=== PATIENT | female | born 1960 | race Caucasian/White ===

== ENCOUNTER 2021-06-29 20:20 | Inpatient (IN) | payer BC, SELFPAY ==
[2021-06-29] VITALS (30 sets, daily range): BP systolic 63–117; BP diastolic 40–66; PULSE 83–100; RESP 10–41; O2SAT 92–100
--- NOTE | ~2021-06-29 | CT_ITS ---
EXAMINATION: CT abdomen pelvis w con DATE: 06/29/2021 21:49 INDICATION: Bright red emesis . Black tarry stools. Abdominal pain. TECHNIQUE: Computed tomography (CT) of the abdomen and pelvis was performed with 100 mL Omnipaque-350 intravenous contrast. Automated exposure control and iterative reconstruction technique were employe d. The dose-length product was 1662.18 mGy-cm. COMPARISON: None FINDINGS: Mild lingular atelectasis. Heart size is normal. No pericardial or pleural effusion. Nodular cirrhoti c liver. Splenomegaly measuring 15.5 cm maximal length likely related to portal venous hypertension r esulting from the cirrhosis. There are both prominent left splenorenal collaterals as well as paraeso phageal varices. There is also recanalization of the umbilical vein. Multiple small gallstones in the dependent aspect of the nondilated gallbladder. Pancreas, bilateral adrenal glands and kidneys are n ormal. There are few scattered colonic diverticula without adjacent inflammatory change to suggest di verticulitis. Small bowel and appendix are normal. Bladder is normal. 2 cm partially calcified fibroi d at the left side of the uterine fundus. Bilateral adnexa are unremarkable. No free intraperitoneal gas or fluid. No pathologically enlarged abdominal or pelvic lymphadenopathy. mild lumbar spondylosis . Indeterminate 2 cm lesion at L1 with subtle peripheral sclerosis. Mild left hip osteoarthritis with subarticular cystic change at the anterior acetabulum. IMPRESSION: 1. Cirrhosis and stigmata of secondary portal venous hypertension including splenomegaly, recanalized umbilical vein, splenorenal collaterals and esophageal varices latter which might account for the re ported history of hematemesis. 2. Cholelithiasis. 3. Mild diverticulosis. 4. Indeterminate 2 cm lesion at L1 statistically most likely to represent a hemangioma however differ ential would include mass effect disease in the proper clinical setting. Consider follow-up either [place] scan or pre and postcontrast MRI of the lumbar spine for further evaluation. 5. Partially calcified uterine fibroid. Reviewed, dictated and finalized at location A. IMPRESSION: 1. Cirrhosis and stigmata of secondary portal venous hypertension including spl enomegaly, recanalized umbilical vein, splenorenal collaterals and esophageal v arices latter which might account for the reported history of hematemesis. 2. Cholelithiasis. 3. Mild diverticulosis. 4. Indeterminate 2 cm lesion at L1 statistically most likely to represent a hem angioma however differential would include mass effect disease in the proper cl inical setting. Consider follow-up either bone scan or pre and postcontrast MRI of the lumbar spine for further evaluation. 5. Partially calcified uterine fibroid.
--- NOTE | ~2021-06-29 | XR_ITS ---
XR chest 1V DATE: 06/29/2021 23:48 INDICATION: Central line placement TECHNIQUE: Portable AP chest on 06/29/2021 at 2338 hours COMPARISON: None FINDINGS: Right internal jugular central venous catheter tip overlies the superior vena cava. No evid ence of pneumothorax. NG tube noted passing toward the stomach, distal portion not included in this examination. Heart size is within normal range. Left lower lobe infiltrate or atelectasis. No pulmonary infiltrate or consolidation, pleural effusion or pulmonary vascular congestion or pneumothorax is noted otherwise IMPRESSION: Right internal jugular central venous catheter in superior vena cava Left lower lobe infiltrate and/or atelectasis NG tube Reviewed, dictated and finalized at location A. IMPRESSION: Right internal jugular central venous catheter in superior vena cav a Left lower lobe infiltrate and/or atelectasis NG tube
--- NOTE | ~2021-06-29 | XR_ITS ---
EXAMINATION: XR abdomen NG/feed tube insert DATE: 06/29/2021 21:23 INDICATION: Nasogastric tube placement TECHNIQUE: A supine view of the abdomen and lower chest was obtained for evaluation of feeding tube placement. COMPARISON: None. FINDINGS: Nasogastric tube tip in the body of the stomach. Mild elevation of left hemidiaphragm. Mild bibasilar opacities. Heart size within normal limits for AP technique. No dilated loops of gas-filled bowel in the visualized upper abdomen. IMPRESSION: 1. Nasogastric tube in the stomach. 2. Mild bibasilar opacities which could represent atelectasis, mild pulmonary edema or pneumonia. Reviewed, dictated and finalized at location A. IMPRESSION: 1. Nasogastric tube in the stomach. 2. Mild bibasilar opacities which could represent atelectasis, mild pulmonary e ashok or pneumonia.
--- NOTE | 2021-06-29 20:50 | ED.GIBLEED ---
HPI - GI Bleed General Chief complaint: GI Bleed Stated complaint: GI BLEED Time Seen by Provider: 06/29/21 20:31 Source: patient History of Present Illness HPI Narrative: Patient presents with dark stool and vomiting blood. Reports she drinks about 4-5 rum and Cokes at night for the past several years. She has had episodes of bloody emesis has not previously been evaluated for it. Today she was found by her in the bathroom with a large amount of bloody stool and bloody emesis so EMS was called. EMS noted very large amount across the restroom and patient was somewhat drowsy and then transported to the ER for evaluation. Patient was given about 300 and asked in route she initially hypotensive and her blood pressure improved on arrival to the ER. Patient reports she feels lightheaded denies any focal areas of pain. She denies prior history of cirrhosis or liver disease that she knows of. Denies any chest pain or shortness of breath denies any fevers cough or congestion Related Data Allergies Allergy/AdvReac Type Severity Reaction Status Date / Time No Known Allergies Allergy Mild Unverified 12/22/08 13:05 Review of Systems Review of Systems: CONSTITUTIONAL: Denies fever, chills, or sweats. EYES: Denies visual changes, redness, or discharge. ENT: Denies rhinorrhea, congestion, sore throat, or otalgia. CARDIOVASCULAR: Denies chest pain, palpitations, or edema. RESPIRATORY: Denies cough or dyspnea. GASTROINTESTINAL: Hematemesis and dark stool GENITOURINARY: Denies dysuria or hematuria. SKIN: Denies rash or itching. MUSCULOSKELETAL: Denies back pain, joint pain, or myalgia. NEUROLOGIC: Denies headache, numbness, or weakness. PSYCHIATRIC: Denies anxiety or depression. All systems reviewed & are unremarkable except as noted in HPI and below PMFSH Social History Social History (Updated 06/29/21 @ 21:02 by Hammad Kaplan MD) Alcohol intake: current Living arrangements: with family Exam Narrative: GENERAL: Well-appearing, well-nourished, and in no acute distress. HEAD: Normocephalic, atraumatic. EYES: PERRLA and EOMI. ENT: Nares clear, no rhinorrhea or epistaxis. Mucous membranes moist. Dried blood around the oropharynx NECK: Supple. No masses. No JVD CHEST: Clear to auscultation. No respiratory distress. No wheezes rales or rhonchi HEART: Regular rate and rhythm. No murmur heard. Normal peripheral pulses. ABDOMEN: Soft, nontender, nondistended, normal active bowel sounds. Melanotic stool noted on the bed and legs of the patient EXTREMITIES: Normal range of motion. No edema. SKIN: Warm, dry, no rash. NEURO: No focal deficits. Alert and oriented x3. PSYCH: Normal mood and affect. Course Reevaluation(s) Reevaluation #1: Patient is feeling improved with fluids and after central line was placed. Patient does have significant GI bleeding and will require admission. Patient is comfortable inpatient plan. Date: 06/30/21 Time: 00:21 Consultations Consultation #1: Case cussed with hospitalist team GI and ICU team patient will be admitted for further management. Date: 06/30/21 Time: 00:21 Vital Signs Vital signs: Vital Signs Pulse Rate 100 06/29/21 20:20 Respiratory Rate 22 H 06/29/21 20:20 Blood Pressure 102/54 L 06/29/21 20:20 Pulse Oximetry 98 06/29/21 20:20 Pulse Rate 92 06/30/21 00:30 Respiratory Rate 22 H 06/30/21 00:30 Blood Pressure 108/48 L 06/30/21 00:30 Pulse Oximetry 100 06/30/21 00:30 Procedures Central Line Placement Right IJ: Central Line Date: 06/29/21 Central Line Time: 23:22 Discussed w/ the patient/family/POA,the placement of a central venous catheter, including its clinical necessity/indication & associated potential risks, benifits and alternatives.: Yes The patient/family/POA understand(s) and acknowledge(s) the need to proceed with central venous catheter insertion as an important element of the patient's clinical management.: Yes
[2021-06-29 21:00] LABS: Basophils Absolute Auto 0.1 K/mm3 (0.0-0.1); Basophils Percent Auto 0.5 % (0.2-1.2); Eosinophils Absolute Auto 0.2 K/mm3 (0-0.3); Eosinophils Percent Auto 1.8 % (0-4.4); Hematocrit 24.9 % (37.0-47.0); Hemoglobin 7.7 g/dL (12.0-15.0); Immature Granulocyte Percent A 0.8 % (0-0.5); Lymphocytes Absolute Auto 3.22 K/mm3 (0.9-3.2); Lymphocytes Percent Auto 25.6 % (18.3-44.2); Mean Corpuscular HGB Conc 30.9 g/dl (32-36); Mean Corpuscular Hemoglobin 32.9 pg (26-34); Mean Corpuscular Volume 106.4 fl (80-100); Mean Platelet Volume 10.3 fl (7.4-10.4); Monocytes Absolute Auto 0.9 K/mm3 (0.1-0.6); Monocytes Percent Auto 7.1 % (2.6-8.5); Neutrophils Absolute Auto 8.1 K/mm3 (1.3-6.7); Neutrophils Percent Auto 64.2 % (45.5-73.1); Platelet Count Result 114 k/mm3 (150-375); Red Blood Count 2.34 M/mm3 (4.2-5.4); Red Cell Distribution Width 16.1 % (11.5-14.5); White Blood Count 12.6 K/mm3 (4.5-10.0)
[2021-06-29 21:10] LABS: INR 1.6; Prothrombin Time 18.4 Seconds (11.1-14.7)
[2021-06-29] MEDS: OCTREOTIDE ACETATE 50 MCG/ML VIAL IV PUSH (21:10)
[2021-06-29 21:11] LABS: Partial Thromboplastin Time 28.7 SECONDS (22.3-36.8)
[2021-06-29 21:14] LABS: Ammonia 49 umol/L (9-30)
[2021-06-29 21:15] LABS: Alanine Aminotransferase 32 U/L (4-35); Albumin Level 2.8 g/dL (3.5-5.1); Alkaline Phosphatase 52 U/L (38-126); Anion Gap 8 mmol/L (8-16); Aspartate Amino Transferase 34 U/L (14-36); Bilirubin,Total 1.6 mg/dL (0.2-1.3); Blood Urea Nitrogen 24 mg/dL (7-17); Calcium 8.6 mg/dL (8.4-10.2); Carbon Dioxide 17 mmol/L (22-30); Chloride 112 mmol/L (98-107); Estimated CRCL calculation 98 ml/min; Estimated Glomerular Filt Rate > 60; Glucose 238 mg/dL (65-110); Lipase 194 U/L (23-300); Magnesium 1.9 mg/dL (1.6-2.3); Potassium 3.9 mmol/L (3.4-5.0); Sodium 137 mmol/L (137-145)
[2021-06-29] MEDS: PANTOPRAZOLE SODIUM IV 40 MG VIAL 80 MG IV PUSH (21:50)
[2021-06-29] MEDS: ONDANSETRON INJ 4 MG/2 ML VIAL IV PUSH ×2 (21:50→23:11)
[2021-06-29] MEDS: SODIUM CHLORIDE 0.9% IV 500 ML 999 ML IV CONT ×2 (22:11→23:11)
--- NOTE | 2021-06-29 23:09 | PC.NURSE ---
16 triple lumen inserted to right IJ by Dr Kaplan
--- NOTE | 2021-06-29 23:10 | PC.NURSE ---
patient had large emesis while sitting up, vomiting several large blood clots. states that she feels bad . Dr Kaplan aware. BP low. NG suction turned off and patient HOB lowered. Dr. Kaplan in to start central line. creative writer assisted. patient tolerated well. SBP during procedure up to 117. at bedside after procedure. no bloody stools noted since arrival
[2021-06-30] VITALS (31 sets, daily range): BP systolic 81–121; BP diastolic 41–95; PULSE 74–100; RESP 12–26; TEMP 36.1–37.2; O2SAT 91–100; BMI 54.1
--- NOTE | 2021-06-30 00:13 | PM.IMHP ---
H&P: HPI History of Present Illness Date/Time: 06/30/21 00:13 Chief Complaint: Hematemesis. Narrative: This is a 60-year-old female with past medical history significant for alcohol dependence, tobacco dependence, half to 1 pack of cigarettes daily morbid obesity, chronic back pain, patient presents to the emergency room after she had an episode of large hematemesis according to patient she also had an episode of melena back in April which clear up on its on again this episode repeated just recently and today she had a large hematemesis. Patient had been feeling nauseous and dry heaving earlier in the day and not overall feeling well for the last couple of days or so with poor appetite. Patient denies any changes in stool character, no weight loss, no abdominal pain, no fevers, no rigors, no chills, no cough, no sputum production, no leg swelling, no PND, no orthopnea. Preliminary workup was significant for hemoglobin of 7, MCV 106, a CT of abdomen and pelvis was consistent with hepatic cirrhosis, portal hypertension, and esophageal varices. Patient is being admitted for further evaluation, management and treatment. Review of Systems Review of Systems: Hematemesis Constitutional: Constitutional: Denies chills, Denies fatigue, Denies fever(s), Denies malaise, Denies night sweats, Reports poor appetite and Denies weakness Eyes: Eyes: Denies change in vision ENT: Denies dysphagia, Denies nasal congestion, Denies nasal discharge, Denies nasal obstruction and Denies odynophagia Cardiovascular: Cardiovascular: Denies chest pain, Denies pedal edema, Denies irregular heart rhythm, Denies claudication, Denies leg edema, Denies lightheadedness, Denies radiating jaw, neck or arm pain, Denies palpitations, Denies dyspnea on exertion and Denies orthopnea Respiratory: Respiratory: Denies cough and Denies excessive phlegm production Gastrointestinal: Gastrointestinal: Denies abdominal pain, Reports melena, Denies dyspepsia, Denies heartburn, Reports nausea and Reports hematemesis Genitourinary: Genitourinary: Denies dysuria Musculoskeletal: Musculoskeletal: Reports back pain Integumentary/Breasts: Skin/Breast: Denies rash Neurologic: Denies focal weakness and Denies Sensory deficit (Neuro) Psychiatric: Psychiatric: Reports no additional psychiatric complaints and Reports as per HPI Endocrine: Endocrine: Denies cold intolerance, Denies heat intolerance, Denies polyphagia, Denies polydipsia and Denies palpitations Hematologic/Lymphatic: Hematologic/Lymphatic: Reports no additional hematologic/lymphatic complaints and Reports as per HPI Allergic/Immunologic: Allergic/Immunologic: Reports no additional allergic/immunologic complaints and Reports as per HPI [facility] Family History Family History (Updated 06/30/21 @ 02:36 by Rubina Martinez RN) Father Diabetes mellitus Social History Social History (Updated 06/29/21 @ 21:02 by Hammad Kaplan MD) Smoking packs per day: 0.75 Smoking cigarettes per day: 15.0 Years smoked: 25 Smoking pack-years: 18.75 Smoking status: Current every day smoker Tobacco type: cigarettes Alcohol intake: current Drinks per week: 28 Substance use: never Living arrangements: with family Spiritual care concerns: No Meds Home Medications and Allergies Home Medications Medication Instructions Recorded Confirmed Type aspirin 81 mg PO DAILY 06/30/21 06/30/21 History Allergies Allergy/AdvReac Type Severity Reaction Status Date / Time No Known Allergies Allergy Mild Unverified 12/22/08 13:05 Vital Signs Vital Signs - 24 hr 06/29/21 20:20 06/29/21 20:54 06/29/21 21:00 Pulse Rate 100 93 94 Respiratory Rate 22 H 28 H 41 H Blood Pressure 102/54 L Pulse Oximetry 98 94 99 06/29/21 21:02 06/29/21 21:15 06/29/21 21:16 Pulse Rate 93 98 97 Respiratory Rate 20 23 H 30 H Blood Pressure 93/58 L 96/66 L Pulse Oximetry 100 06/29/21 21:44 06/29/21 21:45
--- NOTE | 2021-06-30 00:31 | PC.NURSE ---
Pt cleaned with soap and water. Dried blood noted on hands, legs, face. Pt tolerated well. Pt changed gowns as well as shorts. PT provided a fresh ice pack and swab to wet blood out of mouth. Pt states she is feeling much better. Pt aware of plan to get blood as well as be admitted to ICU.
--- NOTE | 2021-06-30 01:11 | PC.NURSE ---
pt using bed machuca at this time.
--- NOTE | 2021-06-30 01:36 | PC.NURSE ---
RN called blood bank to ask about blood on patient states they will check on it. Pt signed consent form for blood at this time. will fax into chart.
--- NOTE | 2021-06-30 02:00 | ADMGEN ---
This patient, Dorina Beaver, was admitted to Intensive Care Unit-8. Patient/family oriented to hospital policies and general routines including ID bracelet, bed and alarms, visiting hours, pain management, procedures, bathroom and other care routines, personal items, smoking policy, room service/diet, and visiting hours. Information on how to activate the Rapid Response Team has been discussed. Patient/Family are encouraged to report perceived risks to care and to ask questions if they do not understand what they are told or what they should do.
[2021-06-30] MEDS: ONDANSETRON INJ 4 MG/2 ML VIAL IV PUSH (02:12)
[2021-06-30] MEDS: SODIUM CHLORIDE 0.9% IV 1,000 ML 125 ML IV CONT (02:55)
[2021-06-30] MEDS: CENTRAL LINE FLUSH 10 ML IV PUSH ×3 (06:09→20:23)
[2021-06-30 06:18] LABS: Add Urine Microscopic? YES; Appearance Urine Cloudy (Clear); Bacteria Urine Trace /hpf; Bilirubin Urine Negative (Negative); Blood Urine Negative (Negative); Color Urine Yellow (Yellow); Glucose Urine UA 1+ mg/dL (Negative); Ketones Urine Negative (Negative); Leukocyte Esterase Ur Negative LEU/UL (Negative); Mucus Urine Rare /lpf; Nitrate Urine Negative (Negative); Protein Urine 2+ mg/dL (Negative); Squamous Epithelial Cell Urine Occasional /hpf (Few); Urobilinogen Urine Negative mg/dL (<2.0)
[2021-06-30 06:55] LABS: Specific Grav Ur 1.056 (1.001-1.035)
[2021-06-30 08:46] LABS: Hematocrit 24.3 % (37.0-47.0); Hemoglobin 7.9 g/dL (12.0-15.0); Immature Platelet Fraction Pct 1.8 % (0.9-11.2); Mean Corpuscular HGB Conc 32.5 g/dl (32-36); Mean Corpuscular Hemoglobin 33.1 pg (26-34); Mean Corpuscular Volume 101.7 fl (80-100); Mean Platelet Volume 10.1 fl (7.4-10.4); Platelet Count Result 85 k/mm3 (150-375); Red Blood Count 2.39 M/mm3 (4.2-5.4); Red Cell Distribution Width 17.2 % (11.5-14.5); White Blood Count 9.2 K/mm3 (4.5-10.0)
[2021-06-30 08:48] LABS: Ammonia 96 umol/L (9-30)
[2021-06-30 08:50] LABS: Alanine Aminotransferase 33 U/L (4-35); Albumin Level 2.7 g/dL (3.5-5.1); Alkaline Phosphatase 50 U/L (38-126); Anion Gap 4 mmol/L (8-16); Aspartate Amino Transferase 42 U/L (14-36); Bilirubin,Total 1.6 mg/dL (0.2-1.3); Blood Urea Nitrogen 30 mg/dL (7-17); Calcium 8.2 mg/dL (8.4-10.2); Carbon Dioxide 20 mmol/L (22-30); Chloride 114 mmol/L (98-107); Estimated CRCL calculation 88 ml/min; Estimated Glomerular Filt Rate > 60; Glucose 161 mg/dL (65-110); Magnesium 1.8 mg/dL (1.6-2.3); Potassium 4.4 mmol/L (3.4-5.0); Sodium 138 mmol/L (137-145)
--- NOTE | 2021-06-30 09:41 | WPDCNINT ---
Assessment and Plan Assessment and plan (1) Upper GI bleeding: Code(s): K92.2 - Gastrointestinal hemorrhage, unspecified Status: Acute Assessment and Plan: Upper GI be likely secondary to esophageal varices or peptic ulcer disease Patient has been transfused 2 units of PRBC most recent hemoglobin is 7.9 Continue serial hemoglobin checks transfuse as needed to keep hemoglobin above 7 Protonix and octreotide infusion GI has been consulted NPO and NG tube in place P.r.n. Zofran for nausea Will give 1 dose of Reglan IV fluids -change normal saline to LR due to hyperchloremia Since patient has been on aspirin I will give her 2 units of platelets in light of active GI bleed Reviewed coags and will be vitamin K Continue IV Rocephin for SBP prophylaxis (2) Acute anemia: Code(s): D64.9 - Anemia, unspecified Status: Acute Assessment and Plan: See above (3) Hepatic cirrhosis: Code(s): K74.60 - Unspecified cirrhosis of liver Status: Acute Assessment and Plan: CT abdomen showed 1. Cirrhosis and stigmata of secondary portal venous hypertension including splenomegaly, recanalized umbilical vein, splenorenal collaterals and esophageal varices latter which might account for the reported history of hematemesis. 2. Cholelithiasis. 3. Mild diverticulosis. 4. Indeterminate 2 cm lesion at L1 statistically most likely to represent a hemangioma however differential would include mass effect disease in the proper clinical setting. Consider follow-up either bone scan or pre and postcontrast MRI of the lumbar spine for further evaluation. 5. Partially calcified uterine fibroid. 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 and chronic alcohol intake Check hepatitis panel With normal AST and ALT patient does not appear to be in hepatitis Monitor liver enzymes (4) Alcohol abuse: Code(s): F10.10 - Alcohol abuse, uncomplicated Status: Acute Assessment and Plan: Start thiamine and folic acid Patient was counseled to quit alcohol (5) Tobacco abuse: Code(s): Z72.0 - Tobacco use Status: Acute Assessment and Plan: Patient was counseled to quit smoke (6) Increased ammonia level: Code(s): R79.89 - Other specified abnormal findings of blood chemistry Status: Acute Assessment and Plan: Patient does not show any signs of hepatic encephalopathy at this time but does have elevated ammonia level from her liver disease Start lactulose once p.o. intake is resumed (7) Thrombocytopenia: Code(s): D69.6 - Thrombocytopenia, unspecified Status: Acute Assessment and Plan: Secondary to alcohol abuse Patient is getting platelet transfusion due to her use of aspirin and upper GI bleed Additional Plan DVT prophylaxis -SCDs Stress ulcer prophylaxis -PPI Nutrition -NPO Code Status -patient requests to be full code Total Critical Care Time - 32 minutes Due to a high probability of clinically significant, life threatening deterioration, the patient required my highest level of preparedness to intervene emergently and I personally spent this critical care time directly and personally managing the patient. This critical care time included obtaining a history; examining the patient; pulse oximetry; ordering and review of studies; arranging urgent treatment with development of a management plan; evaluation of patient's response to treatment; frequent reassessment; and discussions with other providers. It was exclusive of separately billable procedures and treating other patients and teaching time. Please see Assessment and Plan section and the rest of the note for further information on patient assessment and treatment [facility] Consult Note Consult date: 06/30/21 HPI: Dorina Beaver is a 60 year old female with history of alcohol abuse and smoking presented yesterday to ER with chief complaint of vomiting blood. Patient smokes3/4 pac
[2021-06-30] MEDS: LACTATED RINGERS 1,000 ML 100 ML IV CONT ×2 (10:26→20:22)
[2021-06-30] MEDS: THIAMINE HCL 200 MG/2 ML VIAL 100 MG IV PUSH (10:28)
[2021-06-30 10:34] LABS: Hemoglobin A1C 5.3 % (<5.7)
--- NOTE | 2021-06-30 11:08 | WPDGICN ---
Assessment and Plan Assessment and plan (1) Hematemesis: Qualifiers: Nausea presence: with nausea Qualified Code(s): K92.0 - Hematemesis Code(s): K92.0 - Hematemesis Status: Acute Assessment and Plan: will investigate with EGD. Differential includes varices since she has new diagnosis of cirrhosis, ulcer, esophagitis, etc continue with iv protonix, octreotide and iv antibiotic for prophylaxis- not evidence of ascites s/p blood transfusion continue to monitor in icu (2) Melena: Code(s): K92.1 - Melena Status: Acute Assessment and Plan: with ugib never had egd (3) Upper GI bleeding: Code(s): K92.2 - Gastrointestinal hemorrhage, unspecified Status: Acute (4) Acute blood loss anemia: Code(s): D62 - Acute posthemorrhagic anemia Status: Acute Assessment and Plan: s/p blood transfusion (5) Thrombocytopenia: Code(s): D69.6 - Thrombocytopenia, unspecified Status: Acute Assessment and Plan: probably from cirrhosis, will get platelet transfusion and plan is to do egd tomorrow- if more sang bleeding then we can do it later today (6) Cirrhosis, alcoholic: Code(s): K70.30 - Alcoholic cirrhosis of liver without ascites Status: Acute Assessment and Plan: new diagnosis thiamine, support care she needs to stop drinking will complete work up to rule out other chronic liver conditions then will need follow-up either in our office or get established with pmp project manager (7) Morbid obesity: Code(s): E66.01 - Morbid (severe) obesity due to excess calories Status: Acute (8) Portal hypertension: Code(s): K76.6 - Portal hypertension Status: Acute Assessment and Plan: from cirrhosis egd tomorrow on octreotide gtt GI Consult Note Consult date/time: 06/30/21 11:08 Reason for consult: hematemesis, melena, new diagnosis cirrhosis HPI: Dorina Beaver is a 60 year old female with history of alcohol abuse drinking 4-5 coke with rum daily for over 20 years, smoker who came here with new onset of hematemesis. Yesterday she was nauseous and had episode of emesis with clots, then another one this time with sang bright red blood, also noted dark tarry stool and was feeling dizzy. Hb 7.7, platelets 85, inr 1.6, bun 30, normal creatinine, bili 1.6. CT scan a/p reviewed and showed cirrhosis and stigmata of secondary portal venous hypertension including splenomegaly, recanalized umbilical vein, splenorenal collaterals and esophageal varices, cholelithiasis, mild diverticulosis, indeterminate 2 cm lesion at L1 statistically most likely to represent a hemangioma however differential would include mass effect disease in the proper clinical setting. She was admitted to ICU, placed NGT that showed old blood. She is feeling better and hemodynamically stable. Received blood transfusion and will get platelets. Never had egd or colonoscopy. She has not seen a doctor in a while, only using baby aspirin and denies previous history of liver disease. Review of Systems Constitutional: Constitutional: Denies chills Eyes: Eyes: Denies blurry vision ENT: Reports Normal hearing present Cardiovascular: Cardiovascular: Denies chest pain Respiratory: Respiratory: Denies dyspnea Gastrointestinal: Gastrointestinal: Reports melena, Reports nausea, Reports vomiting and Reports hematemesis Genitourinary: Genitourinary: Denies hematuria Musculoskeletal: Musculoskeletal: Denies neck pain Integumentary/Breasts: Skin/Breast: Denies dry skin Neurologic: Denies headache(s) Psychiatric: Psychiatric: Reports anxiety [facility] Past Medical History Medical History (Updated 06/30/21 @ 11:16 by Sam Escobedo MD) Acute blood loss anemia Cirrhosis, alcoholic Hemorrhoids Family History Family History Father Diabetes mellitus Social History Social History
[2021-06-30 11:09] LABS: Hepatitis B Surface Antigen Negative (Negative)
[2021-06-30 11:14] LABS: HAV RESULT Negative (Negative); Hepatitis B Core IgM Result Negative (Negative)
[2021-06-30 11:26] LABS: Hepatitis C Virus Antibody Negative (Negative)
[2021-06-30] MEDS: FOLIC ACID 1 MG/0.2 ML INJ IV PUSH (12:02)
[2021-06-30] MEDS: PHYTONADIONE INJ 10 MG/ML AMP SUB-Q (12:02)
[2021-06-30 12:17] LABS: Glucose Point of Care 167 mg/dl (65-105)
[2021-06-30 12:28] LABS: Hematocrit 24.6 % (37.0-47.0); Hemoglobin 7.8 g/dL (12.0-15.0)
[2021-06-30] MEDS: METOCLOPRAMIDE HCL INJ 10 MG/2 ML VIAL IV PUSH (13:18)
[2021-06-30] MEDS: diphenhydrAMINE HCl INJ 50 MG/ML VIAL 25 MG IV PUSH (13:18)
[2021-06-30] MEDS: methylPREDNISolone SOD SUCC 125 MG VIAL IV PUSH (13:19)
--- NOTE | 2021-06-30 15:23 | PM.IMPN ---
Progress Note: A&P Assessment and Plan (1) GI bleed: Code(s): K92.2 - Gastrointestinal hemorrhage, unspecified Status: Acute Assessment and Plan: Patient with significant risk factors for a esophageal variceal bleeding evidenced on CT of abdomen and pelvis Currently on octreotide plus PPI NPO GI consult 06/30/2021 interval history: 60-year-old female with history of alcohol abuse patient had been drinking heavily and presented emergency department with large hematoma emesis as well as melena, patient BUN is elevated suggesting upper GI bleed patient seen by GI scheduled for EGD tomorrow, upon arrival patient hemoglobin was 7.7 patient is receiving 2 units of pack RBC, also has iron deficiency and being treated with Venofer, patient is seen by abrasive sawyer and appreciate. her family is present in the room (2) Acute anemia: Code(s): D64.9 - Anemia, unspecified Status: Acute Assessment and Plan: Likely secondary to bleed Transfuse as needed (3) Alcohol dependence: Code(s): F10.20 - Alcohol dependence, uncomplicated Status: Acute Assessment and Plan: CIWA protocol as needed Continue to monitor (4) Hepatic cirrhosis: Code(s): K74.60 - Unspecified cirrhosis of liver Status: Acute Assessment and Plan: Likely secondary to alcohol ingestion (5) Portal hypertension: Code(s): K76.6 - Portal hypertension Status: Acute Assessment and Plan: As evidenced on CT of abdomen and pelvis Patient needs to be started on beta-blockers upon going home. (6) Esophageal varices: Code(s): I85.00 - Esophageal varices without bleeding Status: Acute Assessment and Plan: Likely secondary to portal hypertension (7) Morbid obesity: Code(s): E66.01 - Morbid (severe) obesity due to excess calories Status: Acute Assessment and Plan: Lifestyle and diet modifications (8) Tobacco dependence: Code(s): F17.200 - Nicotine dependence, unspecified, uncomplicated Status: Acute Assessment and Plan: Nicotine patch as needed. (9) Chronic back pain: Code(s): M54.9 - Dorsalgia, unspecified; G89.29 - Other chronic pain Status: Acute Assessment and Plan: Pain management as needed avoid NSAID Subjective Date/time seen: 06/30/21 15:23 HPINarrative: This is a 60-year-old female with past medical history significant for alcohol dependence, tobacco dependence, half to 1 pack of cigarettes daily morbid obesity, chronic back pain, patient presents to the emergency room after she had an episode of large hematemesis according to patient she also had an episode of melena back in April which clear up on its on again this episode repeated just recently and today she had a large hematemesis. Patient had been feeling nauseous and dry heaving earlier in the day and not overall feeling well for the last couple of days or so with poor appetite. Patient denies any changes in stool character, no weight loss, no abdominal pain, no fevers, no rigors, no chills, no cough, no sputum production, no leg swelling, no PND, no orthopnea. Preliminary workup was significant for hemoglobin of 7, MCV 106, a CT of abdomen and pelvis was consistent with hepatic cirrhosis, portal hypertension, and esophageal varices. Patient is being admitted for further evaluation, management and treatment. 06/30/2021 interval history: 60-year-old female with history of alcohol abuse patient had been drinking heavily and presented emergency department with large hematoma emesis as well as melena, patient BUN is elevated suggesting upper GI bleed patient seen by GI scheduled for EGD tomorrow, upon arrival patient hemoglobin was 7.7 patient is receiving 2 units of pack RBC, also has iron deficiency and being treated with Venofer, patient is seen by abrasive sawyer and appreciate. her family is present in the room Review of Systems Review of Systems
--- NOTE | 2021-06-30 18:01 | WPDANESEPP ---
Anes - Eval Pre Procedure Procedure: EGD Date/Time: 06/30/21 18:01 Surgeon: kylee Preop Diagnosis: gi bleeding Pre Op Diagnosis: GI BLEED Patient Data Age: 60 Gender: F Height: 1.65 m Weight: 147.1 kg Last Vital Signs Temp 36.7 C 06/30/21 16:00 Pulse 85 06/30/21 16:00 Resp 19 06/30/21 16:00 BP 120/56 L 06/30/21 16:00 Pulse Ox 96 06/30/21 16:00 Allergies Allergy/AdvReac Type Severity Reaction Status Date / Time No Known Allergies Allergy Mild Unverified 12/22/08 13:05 Home Medications Medication Instructions Recorded Confirmed Type aspirin 81 mg PO DAILY 06/30/21 06/30/21 History Laboratory Tests 06/29/21 06/29/21 06/29/21 20:53 20:53 20:53 WBC 12.6 K/mm3 H K/mm3 (4.5-10.0) RBC 2.34 M/mm3 L M/mm3 (4.2-5.4) Hgb 7.7 g/dL L g/dL (12.0-15.0) Hct 24.9 % L % (37.0-47.0) MCV 106.4 fl H fl (80-100) MCH 32.9 pg pg (26-34) MCHC 30.9 g/dl L g/dl (32-36) RDW 16.1 % H % (11.5-14.5) Plt Count 114 k/mm3 L k/mm3 (150-375) MPV 10.3 fl fl (7.4-10.4) Immature Gran % (Auto) 0.8 % H % (0-0.5) Neut % (Auto) 64.2 % % (45.5-73.1) Lymph % (Auto) 25.6 % % (18.3-44.2) [place] % (Auto) 7.1 % % (2.6-8.5) Eos % (Auto) 1.8 % % (0-4.4) Baso % (Auto) 0.5 % % (0.2-1.2) Lymph # (Auto) 3.22 K/mm3 H K/mm3 (0.9-3.2) [place] # (Auto) 0.9 K/mm3 H K/mm3 (0.1-0.6) Eos # (Auto) 0.2 K/mm3 K/mm3 (0-0.3) Baso # (Auto) 0.1 K/mm3 K/mm3 (0.0-0.1) Abs Immat Gran (auto) 0.10 K/mm3 H K/mm3 (0.00-0.031) Absolute Neuts (auto) 8.1 K/mm3 H K/mm3 (1.3-6.7) Absolute Nucleated RBC 0.0 K/mm3 K/mm3 (0.0-0.012) Nucleated RBC % 0.0 % % (0.0-0.2) % Immature Plt Fraction PT 18.4 Seconds H Seconds (11.1-14.7) INR 1.6 APTT 28.7 SECONDS SECONDS (22.3-36.8) Sodium 137 mmol/L mmol/L (137-145) Potassium 3.9 mmol/L mmol/L (3.4-5.0) Chloride 112 mmol/L H mmol/L (98-107) Carbon Dioxide 17 mmol/L L mmol/L (22-30) Anion Gap 8 mmol/L mmol/L (8-16) BUN 24 mg/dL H mg/dL (7-17) Creatinine 0.80 mg/dL mg/dL (0.7-1.0) Estim Creat Clear Calc 98 ml/min ml/min Estimated GFR > 60 (59 - ) Glucose 238 mg/dL H mg/dL (65-110) POC Capillary Glucose Hemoglobin A1c Calcium 8.6 mg/dL mg/dL (8.4-10.2) Magnesium 1.9 mg/dL mg/dL (1.6-2.3) Total Bilirubin 1.6 mg/dL H mg/dL (0.2-1.3) GGT AST 34 U/L U/L (14-36) ALT 32 U/L U/L (4-35) Alkaline Phosphatase 52 U/L U/L (38-126) Ammonia Total Protein 6.0 g/dL L g/dL (6.3-8.2) Albumin 2.8 g/dL L g/dL (3.5-5.1) Lipase 194 U/L U/L (23-300) TSH (Reflex) Urine Color Urine Appearance Urine pH Ur Specific [place] Urine Protein Urine Glucose (UA) Urine Ketones Ur Blood (Man) Urine Nitrate Urine Bilirubin Urine Urobilinogen Leukocyte Esterase Rfl Urine RBC Urine WBC Ur Squamous Epith Cells Urine Bacteria Urine Mucus Hepatitis A IgM Ab Hep Bs Antigen Hep B Core IgM Ab Hepatitis C Ab Screen Blood Type Antibody Screen Crossmatch 06/29/21 06/29/21 06/30/21 20:53 20:53 06:04 WBC RBC Hgb Hct MCV MCH MCHC RDW Plt Count MPV
[2021-06-30 18:33] LABS: Glucose Point of Care 216 mg/dl (65-105)
[2021-06-30] MEDS: INSULIN ASPART (*BKC) 100 UNITS/ML SUB-Q ×2 (18:35→23:22)
[2021-06-30 18:37] LABS: Hematocrit 25.7 % (37.0-47.0); Hemoglobin 8.4 g/dL (12.0-15.0)
[2021-06-30 23:23] LABS: Glucose Point of Care 220 mg/dl (65-105)
[2021-07-01] VITALS (17 sets, daily range): BP systolic 89–131; BP diastolic 38–64; PULSE 70–86; RESP 14–23; TEMP 36.6–37.2; O2SAT 92–100
[2021-07-01 06:17] LABS: Hematocrit 23.5 % (37.0-47.0); Hemoglobin 7.7 g/dL (12.0-15.0); Mean Corpuscular HGB Conc 32.8 g/dl (32-36); Mean Corpuscular Hemoglobin 33.2 pg (26-34); Mean Corpuscular Volume 101.3 fl (80-100); Mean Platelet Volume 9.5 fl (7.4-10.4); Platelet Count Result 88 k/mm3 (150-375); Red Blood Count 2.32 M/mm3 (4.2-5.4); Red Cell Distribution Width 18.2 % (11.5-14.5); White Blood Count 7.3 K/mm3 (4.5-10.0)
[2021-07-01] MEDS: INSULIN ASPART (*BKC) 100 UNITS/ML SUB-Q (06:24)
[2021-07-01] MEDS: LACTATED RINGERS 1,000 ML 100 ML IV CONT ×2 (06:26→16:42)
[2021-07-01] MEDS: CENTRAL LINE FLUSH 10 ML IV PUSH ×2 (06:26→14:00)
[2021-07-01 06:30] LABS: Glucose Point of Care 206 mg/dl (65-105)
[2021-07-01 06:33] LABS: Alanine Aminotransferase 41 U/L (4-35); Albumin Level 3.1 g/dL (3.5-5.1); Alkaline Phosphatase 55 U/L (38-126); Anion Gap -1 mmol/L (8-16); Aspartate Amino Transferase 57 U/L (14-36); Bilirubin,Total 1.2 mg/dL (0.2-1.3); Blood Urea Nitrogen 21 mg/dL (7-17); Calcium 8.6 mg/dL (8.4-10.2); Carbon Dioxide 21 mmol/L (22-30); Chloride 112 mmol/L (98-107); Estimated CRCL calculation 99 ml/min; Estimated Glomerular Filt Rate > 60; Glucose 201 mg/dL (65-110); Magnesium 2.1 mg/dL (1.6-2.3); Potassium 4.1 mmol/L (3.4-5.0); Sodium 132 mmol/L (137-145)
[2021-07-01 06:57] LABS: Iron 39 ug/dL (37-170)
[2021-07-01 07:07] LABS: Percent Iron Saturation 10 % (20-50)
--- NOTE | 2021-07-01 07:58 | PC.NURSE ---
Patient to GI lab at 0749. Transported via stretcher by GI lab team RN. GI lab to resume care of patient.
--- NOTE | 2021-07-01 08:08 | WPDINTPN ---
Progress Note: A&P Assessment and Plan (1) Upper GI bleeding: Code(s): K92.2 - Gastrointestinal hemorrhage, unspecified Status: Acute Assessment and Plan: Upper GI be likely secondary to esophageal varices or peptic ulcer disease Patient was transfused 2 units of PRBC on admission hemoglobin has been stable. Continue serial hemoglobin checks transfuse as needed to keep hemoglobin above 7 continue Protonix and octreotide infusion GI has been consulted and patient is scheduled for EGD today continue NPO and NG tube in place P.r.n. Zofran for nausea continue IV fluids Since patient has been on aspirin patient was given 2 units of platelets yesterday but patient appeared to have a mild allergic reaction and hence platelet transfusion was discontinued. Patient was given Benadryl and steroid and patient is asymptomatic at this time Reviewed coags and patient was given vitamin K Continue IV Rocephin for SBP prophylaxis (2) Acute anemia: Code(s): D64.9 - Anemia, unspecified Status: Acute Assessment and Plan: See above (3) Hepatic cirrhosis: Code(s): K74.60 - Unspecified cirrhosis of liver Status: Acute Assessment and Plan: CT abdomen showed 1. Cirrhosis and stigmata of secondary portal venous hypertension including splenomegaly, recanalized umbilical vein, splenorenal collaterals and esophageal varices latter which might account for the reported history of hematemesis. 2. Cholelithiasis. 3. Mild diverticulosis. 4. Indeterminate 2 cm lesion at L1 statistically most likely to represent a hemangioma however differential would include mass effect disease in the proper clinical setting. Consider follow-up either bone scan or pre and postcontrast MRI of the lumbar spine for further evaluation. 5. Partially calcified uterine fibroid. 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 and chronic alcohol intake negative hepatitis panel With normal AST and ALT patient does not appear to be in hepatitis Monitor liver enzymes LELIA mitochondrial antibody, alpha 1 antitrypsin, ceruloplasmin and GGT are pending gastroenterology is following (4) Alcohol abuse: Code(s): F10.10 - Alcohol abuse, uncomplicated Status: Acute Assessment and Plan: Start thiamine and folic acid Patient was counseled to quit alcohol monitor for signs of withdrawal (5) Tobacco abuse: Code(s): Z72.0 - Tobacco use Status: Acute Assessment and Plan: Patient was counseled to quit smoke (6) Increased ammonia level: Code(s): R79.89 - Other specified abnormal findings of blood chemistry Status: Acute Assessment and Plan: Patient does not show any signs of hepatic encephalopathy at this time but does have elevated ammonia level from her liver disease Start lactulose once p.o. intake is resumed monitor ammonia levels (7) Thrombocytopenia: Code(s): D69.6 - Thrombocytopenia, unspecified Status: Acute Assessment and Plan: Secondary to alcohol abuse Patient was given platelet transfusion yesterday but patient appeared to had mild allergic reaction and hence it was discontinued. Patient was given 1 dose of Benadryl and steroids patient is asymptomatic at this Additional Plan DVT prophylaxis -SCDs Stress ulcer prophylaxis -PPI Nutrition -NPO Code Status -patient requests to be full code Subjective Date/time seen: 07/01/21 08:08 Overnight events reviewed. Patient denies any new episodes of vomiting. He did had couple of bowel movements with dark black stools yesterday pair denies any pain at this time. Patient denies fever, chest pain, shortness of breath, cough, headache or constipation. Vitals have been stable patient is afebrile. All other systems were reviewed and were negative Review of Systems Review of Systems: All systems reviewed & are unremarkable except as noted in HPI and below (HPI) Exam Narrative:
[2021-07-01] MEDS: LACTATED RINGERS 1,000 ML 150 ML IV CONT (08:12)
[2021-07-01 08:32] LABS: Glucose Point of Care 173 mg/dl (65-105)
[2021-07-01] MEDS: FOLIC ACID 1 MG/0.2 ML INJ IV PUSH (09:36)
[2021-07-01] MEDS: LACTULOSE 20 GM/30 ML UDC PO ×3 (09:36→16:42)
[2021-07-01] MEDS: PANTOPRAZOLE SODIUM IV 40 MG VIAL IV PUSH (09:36)
[2021-07-01] MEDS: THIAMINE HCL 200 MG/2 ML VIAL 100 MG IV PUSH (09:37)
[2021-07-01 12:15] LABS: Glucose Point of Care 178 mg/dl (65-105)
[2021-07-01 13:12] LABS: Hematocrit 23.4 % (37.0-47.0); Hemoglobin 7.4 g/dL (12.0-15.0)
[2021-07-01 18:00] LABS: Glucose Point of Care 180 mg/dl (65-105)
[2021-07-01 18:04] LABS: Hematocrit 23.6 % (37.0-47.0); Hemoglobin 7.5 g/dL (12.0-15.0)
--- NOTE | 2021-07-01 18:59 | PC.NURSE ---
Report given to SHU Jaramillo at 1850 with [facility]. all questions answered and plan of care reviewed. Patient to transfer to [facility] via ambulance. Call back number to facility as follows: [phone].
--- NOTE | 2021-07-01 19:23 | PC.NURSE ---
Patient to go to [facility] room 490 bed 7.
--- NOTE | 2021-07-01 20:12 | PC.NURSE ---
Patient transported via ambulance to [facility] room 490 bed 7, report previously given to RN and Charge nurse updated on departure.
[2021-07-02 20:24] LABS: GGT 38 U/L (3-70)
[2021-07-04 14:27] LABS: Ceruloplasmin 28 mg/dL (18-53)
[2021-07-06 23:22] LABS: Mitochondrial (M2) Ab (IgG) <=20.0 U (<=20.0)
--- NOTE | 2021-08-08 10:01 | PM.TDS ---
Transfer Discharge Sum: Prov Provider Date of admission: 06/30/21 00:24 Primary care physician: PHYSICIAN NOT ON STAFF Admitting clinician: Daphney Garcia MD Consults: 06/30/21 00:25 Consult to Physician Routine Comment: Consulting Provider: Sam Escobedo Reason for consultation: gi bleed Has provider been notified: Yes Consult to Physician Routine Comment: Consulting Provider: Rom Perrin Reason for consultation: hypotension Has provider been notified: Yes DS: Admitting Diagnosis Discharge Date 07/01/21 Admitting Diagnosis Upper GI bleed and anemia DS: Discharge Diagnosis Discharge Diagnosis (1) Esophageal varices: Code(s): I85.00 - Esophageal varices without bleeding Status: Acute (2) Hepatic cirrhosis: Code(s): K74.60 - Unspecified cirrhosis of liver Status: Acute (3) Portal hypertension: Code(s): K76.6 - Portal hypertension Status: Acute (4) GI bleed: Code(s): K92.2 - Gastrointestinal hemorrhage, unspecified Status: Acute (5) Acute blood loss anemia: Code(s): D62 - Acute posthemorrhagic anemia Status: Acute (6) Cirrhosis, alcoholic: Code(s): K70.30 - Alcoholic cirrhosis of liver without ascites Status: Acute (7) Upper GI bleeding: Code(s): K92.2 - Gastrointestinal hemorrhage, unspecified Status: Acute (8) Gastric varices: Code(s): I86.4 - Gastric varices Status: Acute Transfer Discharge Sum: Med Medications Active and Home Medications: Home Medications aspirin 81 mg capsule 81 mg PO DAILY 06/30/21 [History Confirmed 06/30/21] Transfer Discharge Sum: Hosp Hospital Course Hospital course: Dorina Beaver is a 61 year old female with history of alcohol abuse and smoking who presented to ER with chief complaint of vomiting blood.?Patient was diagnosed with upper GI bleed and workup suggested patient has cirrhosis most likely from alcohol liver disease.? Patient was admitted to ICU for further evaluation management.? She was transfused 2 units of PRBC and started on Protonix and octreotide infusion.? As patient was on aspirin patient was also given [address] abdomen showed 1. Cirrhosis and stigmata of secondary portal venous hypertension including splenomegaly, recanalized umbilical vein, splenorenal collaterals and esophageal varices latter which might account for the reported history of hematemesis. 2. Cholelithiasis. 3. Mild diverticulosis. 4. Indeterminate 2 cm lesion at L1 statistically most likely to represent a hemangioma however differential would include mass effect disease in the proper clinical setting. Consider follow-up either bone scan or pre and postcontrast MRI of the lumbar spine for further evaluation. 5. Partially calcified uterine fibroid. GI was consulted. Additional workup for cirrhosis was also sent. Patient had elevated ammonia level but did not show any signs of hepatic encephalopathy. Patient was also thrombocytopenic. She was also started on antibiotics for SBP prophylaxis. 07/01 patient underwent EGD showed nonbleeding esophageal varices and a large gastric varix. GI recommended transfer to tertiary facility for a TIPS procedure. Post EGD patient's hemoglobin remained stable. Patient was continued on octreotide Protonix and antibiotics. Was accepted by [facility] and was transferred for further evaluation management in stable condition by ambulance.
== END 2021-07-01 20:13 | disposition short-term general hospital (02) | DRG 300 ==
LOC: ANHED 06-30 00:24 → ANHICU 06-30 00:51
PROVIDERS: Internal Medicine; Internal Medicine Gastroenterology; Admitting Provider Internal Medicine; Emergency Provider Emergency Medicine; Visit Provider Internal Medicine
PROC: 0DJ08ZZ Inspection of Upper Intestinal Tract, Via Natural or Artificial Opening Endoscopic (ICD-10-PCS; CPT 43235; principal; 2021-07-01 08:00)
DX: I86.4 Gastric varices (principal); D62 Acute posthemorrhagic anemia; K92.0 Hematemesis; Z68.43 Body mass index [BMI] 50.0-59.9, adult; K76.6 Portal hypertension; I85.00 Esophageal varices without bleeding; I95.9 Hypotension, unspecified; K70.30 Alcoholic cirrhosis of liver without ascites; F10.20 Alcohol dependence, uncomplicated; D69.59 Other secondary thrombocytopenia; F17.210 Nicotine dependence, cigarettes, uncomplicated; E66.01 Morbid (severe) obesity due to excess calories; M54.9 Dorsalgia, unspecified; G89.29 Other chronic pain
CPT/HCPCS: 36415; 36430; 36556; 71045; 74177; 80053; 80074; 81001; 82104; 82140; 82390; 82728; 82948; 82977; 83036; 83520; 83540; 83550; 83690; 83735; 84443; 85014; 85018; 85025; 85027; 85055; 85610; 85730; 86038; 86850; 86900; 86901; 86920; 96361; 96374; 96375; 96376; 99285; A9270; C1751; C9113; J0131; J0696; J1200; J1815; J2354; J2405; J2704; J2765; J2930; J3411; J3430; J7030; J7040; J7060; J7120; P9016; P9034; Q9967